=== PATIENT | female | born 1965 | race Caucasian/White ===

== ENCOUNTER → 2017-01-21 | Outpatient (CLI) | payer OTHER ==
[2015-05-29 10:20] VITALS: BP 134/78
[~2017-01-21] MED LIST: BARIUM SULFATE 0.1% 450 ML SUSP PO ONE; IOHEXOL 240 MG/ML 50ML VIAL. PO ONE; IOHEXOL 300 MG/ML 75 ML VIAL. IV ONE
--- NOTE | 2017-01-21 16:44 | RAD ---
CT enterography with and without contrast Clinical indications: Mid abdominal pain on and off for 3 months. History of colitis. Poor historian. Technique: A total of 900 mL of Volumen was given by mouth. After IV infusion of 75 cc of Omnipaque 300, helical CT scanning of the abdomen and pelvis was performed. Comparison: None available. Findings: The gallbladder is surgically absent. No extrahepatic biliary ductal dilatation is seen. No hepatic mass is seen. The spleen measures 12.4 cm in length. There is severe elevation of the right hemidiaphragm with the right hemidiaphragm and liver extending up to level of the right hilum. The pancreas is normal. No adrenal mass is seen. Both kidneys are normal without hydronephrosis or hydroureter. The urinary bladder wall is smooth. No focal aneurysmal dilatation of the abdominal aorta is seen. No enlarged abdominal or pelvic lymphadenopathy is seen. Urinary bladder wall is smooth. Uterus is surgically absent. The left ovary is visualized and is normal. The right ovary is not visualized on this study. There is bowel wall thickening of loops of jejunum. On image 17 through 20 coronal series 3, there is narrowing of a loop of distal ileum. Proximal to this point, a fecal sign is seen. This is consistent with a bowel obstruction possibly due to stricture or adhesion. The segment of ileum distal to this point demonstrates wall thickening to the ileocecal valve. The appendix is not visualized. No mesenteric inflammatory change is seen. No free fluid or free air is seen. No osteolytic process is seen. Right lung base atelectasis is seen. No lung base consolidation is evident. IMPRESSION: There is wall thickening of the jejunum consistent with enteritis. There is a distal small bowel obstruction involving the distal ileum as discussed above. This may be due to stricture or adhesion. Distal to this point, there is wall thickening of the distal ileum to the ileocecal valve. Severe elevation of the right hemidiaphragm.
== END | disposition home or self-care (01) ==
LOC: CT 13:52
PROVIDERS: ATTEND Internal Medicine Gastroenterology
DX: K52.9 Noninfective gastroenteritis and colitis, unspecified (principal); K52.839 Microscopic colitis, unspecified; K56.60 Unspecified intestinal obstruction
CPT/HCPCS: Q9967

== ENCOUNTER → 2017-03-11 | Outpatient (CLI) | payer OTHER ==
[2015-05-29 10:20] VITALS: BP 134/78
--- NOTE | 2017-03-11 14:53 | RAD ---
Chest radiograph 03/11/2017 at 1420 hours Indication: IBS, stomach pain and cramping. Comparison: None available Technique: PA and lateral views of the chest are provided. Findings: Cholecystectomy clips are identified in the right upper quadrant. Cardiomediastinal silhouette is within normal limits. There is elevation of the right hemidiaphragm. No pleural effusions, pulmonary vascular congestion or pneumothorax. The lungs are clear. Osseous structures are normal. Impression: No acute cardiopulmonary process.
--- NOTE | 2017-03-11 15:44 | RAD ---
Abdominal radiograph 03/11/2017 at 1425 hours Indication: Stomach pain and cramping. Swallowed pill/camera 2 weeks ago. Comparison: CT enterography 01/21/2017 Technique: 2 supine views of the abdomen are provided. Findings: Supine technique limits evaluation for free intraperitoneal air. Close cystectomy clips are identified in the right upper quadrant. A capsule endoscopy device is identified projecting of the right iliac bone, presumed to be within the region of the terminal ileum, proximal large bowel. There are no dilated loops of small or large bowel. Impression: Ingested capsule endoscopy device is identified projecting over the right iliac bone in the expected region of the terminal ileum, proximal large bowel. Nonobstructive bowel gas pattern.
[2017-03-13 02:08] LABS: HCV ANTIBODY <0.1 s/co ratio (0.0-0.9); HEP A IGM ABDY Negative (Negative)
== END | disposition home or self-care (01) ==
LOC: LAB 13:59
PROVIDERS: ATTEND Internal Medicine Gastroenterology
DX: K50.919 Crohn's disease, unspecified, with unspecified complications (principal); T18.9XXA Foreign body of alimentary tract, part unspecified, initial encounter; R10.9 Unspecified abdominal pain; X58.XXXA Exposure to other specified factors, initial encounter; Y93.89 Activity, other specified; Y92.89 Other specified places as the place of occurrence of the external cause; Y99.8 Other external cause status
CPT/HCPCS: 71020; 74000

== ENCOUNTER → 2017-03-22 | Outpatient (CLI) | payer OTHER ==
[2015-05-29 10:20] VITALS: BP 134/78
--- NOTE | 2017-03-22 17:07 | RAD ---
DULCE, 03/22/2017: History: Retained endoscopic device A small electronic radiopaque foreign body is projected over the right midabdomen. This probably represents an endoscopy capsule. The bowel loops are not dilated. There is no evidence of organomegaly. Surgical clips are present in the right upper quadrant. An additional surgical clips present in the right pelvis. IMPRESSION: Retained foreign body in the right midabdomen as described above.
== END | disposition home or self-care (01) ==
LOC: RAD 15:44
PROVIDERS: ATTEND Internal Medicine Gastroenterology
DX: T18.9XXA Foreign body of alimentary tract, part unspecified, initial encounter (principal); X58.XXXA Exposure to other specified factors, initial encounter; Y93.89 Activity, other specified; Y92.89 Other specified places as the place of occurrence of the external cause; Y99.8 Other external cause status
CPT/HCPCS: 74000

== ENCOUNTER → 2017-04-04 | Outpatient (CLI) | payer OTHER ==
[2015-05-29 10:20] VITALS: BP 134/78
--- NOTE | 2017-04-04 10:33 | RAD ---
DULCE, 04/04/2017: History: Retained endoscopic foreign body Comparison is made to a study from 03/22/2017. The small radiopaque foreign body seen on the previous study persists, currently projected over the sacrum just to the right of midline. This reportedly represents an endoscopic pill/camera. Its position would be compatible with distal small bowel or sigmoid colon. Its exact location is unclear, however, its persistence suggests that it could be lodged in a GI tract diverticulum. CT scanning may be useful for further evaluation, if clinically indicated. The abdominal bowel gas pattern is unremarkable. Surgical clips are present in the right upper quadrant and lower pelvis on the right. There is chronic elevation of the right hemidiaphragm. IMPRESSION: Persistent retained foreign body, currently projected over the upper sacrum just to the right of midline.
== END | disposition home or self-care (01) ==
LOC: DXRAD 09:47
PROVIDERS: ATTEND Internal Medicine Gastroenterology
DX: T18.9XXA Foreign body of alimentary tract, part unspecified, initial encounter (principal); J98.6 Disorders of diaphragm; X58.XXXA Exposure to other specified factors, initial encounter; Y93.89 Activity, other specified; Y92.89 Other specified places as the place of occurrence of the external cause; Y99.8 Other external cause status
CPT/HCPCS: 74000

== ENCOUNTER → 2017-04-12 | Outpatient (CLI) | payer OTHER ==
[2015-05-29 10:20] VITALS: BP 134/78
--- NOTE | 2017-04-12 14:29 | RAD ---
Examination: Single frontal view of the abdomen History: History of abdominal pain Compression: 04/14/2013 Findings: Ingested capsule endoscopy device now projects in the region of the right lower pelvis probably in the redundant distal sigmoid colon or distal small bowel loop. The bowel gas pattern appears unremarkable Impression: Ingested capsule endoscopy device now projects in the region of the right lower pelvis probably in the redundant distal sigmoid colon or distal small bowel loop
== END | disposition home or self-care (01) ==
LOC: DXRAD 10:36
PROVIDERS: ATTEND Internal Medicine Gastroenterology
DX: K50.00 Crohn's disease of small intestine without complications (principal); T18.9XXA Foreign body of alimentary tract, part unspecified, initial encounter; X58.XXXA Exposure to other specified factors, initial encounter; Y93.89 Activity, other specified; Y92.89 Other specified places as the place of occurrence of the external cause; Y99.8 Other external cause status
CPT/HCPCS: 74000

== ENCOUNTER → 2017-05-02 | Outpatient (CLI) | payer OTHER ==
[2015-05-29 10:20] VITALS: BP 134/78
--- NOTE | 2017-05-02 16:46 | RAD ---
KUB Clinical Indication: ENDOSCOPIC DEVICE - CONSTIPATION Comparison: Abdominal radiograph dated 04/12/2017 Findings: No obvious free air. No dilated, air-filled loops of bowel. Moderate colonic stool predominantly within the cecum/ascending colon. Previously identified capsule endoscopy device is no longer seen. Cholecystectomy. Surgical clip in the right pelvis. No acute osseous abnormality. IMPRESSION: 1. Nonobstructive bowel gas pattern. 2. Moderate colonic stool predominantly within the cecum/ascending colon. 3. Previously identified capsule endoscopy device is no longer seen.
== END | disposition home or self-care (01) ==
LOC: DXRAD 14:25
PROVIDERS: ATTEND Internal Medicine Gastroenterology
DX: K50.00 Crohn's disease of small intestine without complications (principal); T18.9XXD Foreign body of alimentary tract, part unspecified, subsequent encounter; K59.00 Constipation, unspecified; Z90.49 Acquired absence of other specified parts of digestive tract; X58.XXXD Exposure to other specified factors, subsequent encounter
CPT/HCPCS: 74000